=== PATIENT | female | born 1985 | race Caucasian/White ===

== ENCOUNTER 2020-04-29 10:30 | Emergency (ER) | payer OTHER ==
[2020-04-29 10:47] VITALS: BP 113/80; PULSE 70; TEMP 98.5; BMI 22.8
[2020-04-29] MEDS ORDERED: IBUPROFEN 400 MG TABLET (FP) PO ONE ×2 (10:55→11:05)
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
== END 2020-04-29 12:15 | disposition home or self-care (01) ==
LOC: FER 10:30
DX: S09.90XA Unspecified injury of head, initial encounter (principal); S16.1XXA Strain of muscle, fascia and tendon at neck level, initial encounter; V19.9XXA Pedal cyclist (driver) (passenger) injured in unspecified traffic accident, initial encounter
CPT/HCPCS: 70450-TC; 72125-TC; 99285-25; U0003

== ENCOUNTER 2023-12-25 10:46 | Emergency (ER) | payer OTHER ==
[2023-12-25 10:59] VITALS: BP 116/76; PULSE 96; RESP 16; TEMP 98.6; BMI 27.5
[2023-12-25] MEDS ORDERED: ACETAMINOPHEN INJECTION 100 ML IVPB ONE (11:08)
[2023-12-25] MEDS ORDERED: FAMOTIDINE 20 MG/50 ML IVPB 20 MG/50 ML MG IVPB ONE (11:08)
[2023-12-25] MEDS ORDERED: ONDANSETRON 4 MG/2 ML VIAL ONE (11:08)
[2023-12-25] MEDS: ONDANSETRON 4 MG/2 ML VIAL IVPUSH ONE (11:15)
[2023-12-25] MEDS: SODIUM CHLORIDE 1,000 ML IV STA (11:15)
[2023-12-25] MEDS: FAMOTIDINE 20 MG/50 ML IVPB 20 MG/50 ML MG IVPB ONE (11:20)
[2023-12-25] MEDS: ACETAMINOPHEN 1000 MG/100 ML BAG IVPB ONE (11:30)
[2023-12-25 11:51] LABS: HEMATOCRIT 42.1 % (32.4-45.2); HEMOGLOBIN 13.9 G/dL (10.7-15.3); MCH 29.9 pg (25.7-33.7); MCHC 33.1 g/dl (32.0-36.0); MEAN CELL VOLUME 90.4 fl (80-96); MEAN PLT VOLUME 7.5 fl (7.5-11.1); PLATELET COUNT 243.8 10^3/uL (134-434); RBC 4.66 10^6/uL (3.60-5.2); RDW 14.7 % (11.6-15.6); WHITE BLOOD COUNT 7.5 10^3/uL (4.0-10.8)
[2023-12-25 11:56] LABS: PLATELET ESTIMATE ADEQUATE
[2023-12-25 12:00] LABS: BILIRUBIN,TOTAL 0.5 mg/dl (0.2-1); CALCIUM 8.5 mg/dl (8.5-10.1); CREATININE 0.8 mg/dl (0.6-1.3); POTASSIUM 3.8 mmol/L (3.5-5.1); TOT PROT 6.3 g/dl (6.4-8.2)
== END 2023-12-25 13:15 | disposition home or self-care (01) ==
LOC: FER 10:46
PROC: 3E033GC Introduction of Other Therapeutic Substance into Peripheral Vein, Percutaneous Approach (ICD-10-PCS; principal; 2023-12-25)
PROC: 3E033GC Introduction of Other Therapeutic Substance into Peripheral Vein, Percutaneous Approach (ICD-10-PCS; 2023-12-25)
PROC: 3E033NZ Introduction of Analgesics, Hypnotics, Sedatives into Peripheral Vein, Percutaneous Approach (ICD-10-PCS; 2023-12-25)
DX: R11.2 Nausea with vomiting, unspecified (principal); R19.7 Diarrhea, unspecified
CPT/HCPCS: 36415; 80053; 81003; 83690; 85027; 99284-25; J0131